=== PATIENT | female | born 2000 | race Caucasian/White ===

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

== ENCOUNTER 2021-07-09 15:46 | Outpatient (CLI) | payer OTHER ==
[2021-07-09] MEDS ORDERED: BETAMET ACET-BETAMETH SOD PHOS 6 MG/ML MDV IM SCH (16:00)
== END 2021-07-09 16:55 | disposition home or self-care (01) ==
LOC: FBPOP 15:46
PROVIDERS: ATTEND Obstetrics & Gynecology Obstetrics
DX: O36.8131 Decreased fetal movements, third trimester, fetus 1 (principal); Z3A.36 36 weeks gestation of pregnancy
CPT/HCPCS: 59025; 96372; 84112; J0702

== ENCOUNTER 2021-07-10 16:10 | Outpatient (CLI) | payer OTHER ==
[2021-07-10] MEDS ORDERED: BETAMET ACET-BETAMETH SOD PHOS 6 MG/ML MDV IM SCH (16:30)
[2021-07-10 17:20] VITALS: BP 139/86; PULSE 69; RESP 16; TEMP 97.8
== END 2021-07-10 17:00 | disposition home or self-care (01) ==
LOC: FBPOP 16:10
PROVIDERS: ATTEND Obstetrics & Gynecology Obstetrics
DX: O36.8131 Decreased fetal movements, third trimester, fetus 1 (principal); O36.5931 Maternal care for other known or suspected poor fetal growth, third trimester, fetus 1; Z3A.36 36 weeks gestation of pregnancy
CPT/HCPCS: 59025; J0702

== ENCOUNTER 2021-07-11 00:02 | Observation (INO) | payer OTHER ==
[2021-07-11] MEDS ORDERED: LACTATED RINGERS 1,000 ML IV SCH (00:45)
[2021-07-11 01:12] VITALS: BP 134/82; PULSE 109; RESP 16; TEMP 98.2
[2021-07-11 01:16] LABS: Basophils % (A) 0 %; Eosinophils % (A) 0 %; HCT 40.9 % (34.0-46.0); HGB 13.7 gm/dL (11.4-16.0); Lymphocytes # (A) 0.9 k/uL (1.0-4.8); Lymphocytes % (A) 8 %; MCH 32.8 pg (25.0-35.0); MCHC 33.6 g/dL (31.0-37.0); MCV 97.6 fL (80.0-100.0); Mean Platelet Volume 7.5; Monocytes # (A) 0.4 k/uL (0-1.0); Monocytes % (A) 4 %; Neutrophils # (A) 9.5 k/uL (1.3-7.7); Neutrophils % (A) 87 %; Platelet Count 252 k/uL (150-450); RBC 4.19 m/uL (3.80-5.40); RDW 13.6 % (11.5-15.5); WBC 10.9 k/uL (4.0-11.0)
--- NOTE | 2021-07-11 08:33 | US ---
EXAMINATION TYPE: US OB limited DATE OF EXAM: 07/11/2021 COMPARISON: NONE CLINICAL HISTORY: MD ordered OMAIRA . low omaira at office - 7cm, light bleeding EXAM PERFORMED: OBTA GESTATIONAL AGE / DATING Physician Established: (36 weeks/4 days) EDC: 08/04/2021 No growth performed on today?s study per ordering physician SURVEY OMAIRA: 9.5 cm Normal Ultrasound evidence of premature rupture of membranes? no HEART RATE: 115 bpm RHYTHM: Normal IMPRESSION: Limited ultrasound. Single viable intrauterine with normal OMAIRA.
--- NOTE | 2021-07-11 09:12 | P.DS ---
Providers Date of admission: 07/11/21 00:55 Expected date of discharge: 07/11/21 Attending physician: Roselyn Adler Primary care physician: Stated None - Discharge Diagnosis(es) (1) 36 to 37 weeks gestation of Current Visit: Yes Status: Acute (2) Vaginal bleeding Current Visit: Yes Status: Acute (3) SGA (small for gestational age), , affecting care of mother, antepartum Current Visit: Yes Status: Acute Hospital Course: 20yo at 36 4/7 weeks that presented last night with c/o vaginal bleeding, no further bleeding last night, brown discharge this am. she does notes good FM. NST cat 1 this am. Patient has been receiving routine care with myself, other than being complicated by small for gestational age she has done well. She has been receiving NSTs for presumed decreased movement all testing has been reassuring throughout the . She did complain of possible rupture of membranes on Wednesday when low fluid was appreciated on ultrasound. She presented to labor and delivery and negative in nature was appreciated. Plan - Discharge Summary New Discharge Prescriptions: No Action Pnv No.95/Ferrous Fum/Folic AC [ Multivitamin Tablet] 1 each PO DAILY Aspirin [Children's Aspirin] 81 mg PO DAILY Discharge Medication List Pnv No.95/Ferrous Fum/Folic AC [ Multivitamin Tablet] 1 each PO DAILY 12/06/18 [History] Aspirin [Children's Aspirin] 81 mg PO DAILY 07/09/21 [History] Follow up Appointment(s)/Referral(s): Roselyn Adler DO [Doctor of Osteopathic Medicine] - 3 Days (wednesday for NST ) Discharge Disposition: HOME SELF-CARE
--- NOTE | 2021-07-11 09:13 | P.HPOB ---
History of Present Illness H&P Date: 07/11/21 Chief Complaint: IUP at 36-4/7 weeks, vaginal bleeding This is a 20-year-old 3 para 1011 at 36-4/7 weeks, patient is dated by a last menstrual period equal to a first trimester ultrasound. Patient presented with complaints of an episode of vaginal bleeding last evening. Patient noted she got up to the bathroom and noted blood bright red in nature in the toilet. Patient presented to labor and delivery. testing has been reassuring overnight, NST category 1, no contractions were appreciated. Patient has had no further bleeding overnight. Cervix was unchanged from prior examination //high. OMAIRA was ordered for this morning. Amniotic fluid index in the office on wednesday was 7.7, increased to 9.8 this morning. 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, dermographia History of Any Multi-Drug Resistant Organisms: None Reported Past Surgical History: No Surgical Hx Reported Additional Past Surgical History / Comment(s): D&C Past Anesthesia/Blood Transfusion Reactions: No Reported Reaction Past Psychological History: Anxiety, Depression Smoking Status: Never smoker Past Alcohol Use History: None Reported Past Drug Use History: None Reported - Past Family History Mother Family Medical History: Cancer Additional Family Medical History / Comment(s): Cervical and Uterine CA Medications and Allergies Home Medications Medication Instructions Recorded Confirmed Type Pnv No.95/Ferrous Fum/Folic AC 1 each PO DAILY 12/06/18 07/11/21 History [ Multivitamin Tablet] Aspirin [Children's Aspirin] 81 mg PO DAILY 07/09/21 07/11/21 History Allergies Allergy/AdvReac Type Severity Reaction Status Date / Time No Known Allergies Allergy Verified 07/10/21 16:22 Exam Osteopathic Statement: *. No significant issues noted on an osteopathic structural exam other than those noted in the History and Physical/Consult. Vital Signs Temp Pulse Resp BP 07/11/21 00:17 98.2 F 109 H 16 134/82 Intake and Output 07/10/21 07/11/21 07/11/21 22:59 06:59 14:59 Other: # Voids 1 Weight 106.594 kg Targeted physical exam was performed on this date and hospice/home health aide a well- nourished well-developed female in no acute distress, breathing is noted to be nonlabored, heart has regular rhythm, abdomen is gravid and appropriate for gestational age, cervical exam is deferred as she has not been yael and no changes appreciated on RN exam last evening. NST is appreciated to be category 1, no contractions are appreciated. Amniotic fluid index performed this morning by ultrasound, 9.8 increased from prior 7.7. Results Result Diagrams: 07/11/21 01:00 Abnormal Lab Results - Last 24 Hours (Table) 07/11/21 Range/Units 01:00 Neutrophils # 9.5 H (1.3-7.7) k/uL Lymphocytes # 0.9 L (1.0-4.8) k/uL Assessment and Plan (1) 36 to 37 weeks gestation of Current Visit: Yes Status: Acute Code(s): IYB8910 - SNOMED Code(s): 292642895 (2) Vaginal bleeding Current Visit: Yes Status: Acute Code(s): N93.9 - ABNORMAL UTERINE AND VAGINAL BLEEDING, UNSPECIFIED SNOMED Code(s): 247299225 (3) SGA (small for gestational age), , affecting care of mother, antepartum Current Visit: Yes Status: Acute Code(s): O36.5990 - MATERN CARE FOR OTH OR SUSP POOR FETL GRTH, UNSP TRI, UNSP SNOMED Code(s): 451416615 Plan: 20yo at 36 4/7 weeks that presented last evening with c/o vaginal bleeding. She was seen in the office on Wednesday efw was noted to be 10%ile, OMAIRA 7.7, she did receive betamethasone on wednesday and . she was to have an OMAIRA today and the is was noted to increase to 9.8. She is counseled on PTL precautions. She is to FU on wednesday in the office for NST/OMAIRA.
== END 2021-07-11 10:10 | disposition home or self-care (01) ==
LOC: FBPOP 00:02 → 4FBP 00:47 → UNDOADMOB 00:47 → 4FBP 00:55
PROVIDERS: ADMIT Obstetrics & Gynecology; ATTEND Obstetrics & Gynecology Obstetrics
DX: O46.93 Antepartum hemorrhage, unspecified, third trimester (principal); O36.5930 Maternal care for other known or suspected poor fetal growth, third trimester, not applicable or unspecified; Z3A.37 37 weeks gestation of pregnancy; O99.344 Other mental disorders complicating childbirth; F41.9 Anxiety disorder, unspecified; F32.A Depression, unspecified; O99.713 Diseases of the skin and subcutaneous tissue complicating pregnancy, third trimester; L50.3 Dermatographic urticaria; Z79.82 Long term (current) use of aspirin; Z79.899 Other long term (current) drug therapy; Z71.89 Other specified counseling; Z80.49 Family history of malignant neoplasm of other genital organs; Z87.59 Personal history of other complications of pregnancy, childbirth and the puerperium
CPT/HCPCS: 59025; 96360; 96361; 85025; 76815; G0463; G0378; 99215

== ENCOUNTER 2021-07-14 09:11 | Inpatient (IN) | payer OTHER ==
[2021-07-14] MEDS ORDERED: CITRIC ACID-SODIUM CITRATE 15 ML CUP PO ONE (09:53)
[2021-07-14] MEDS ORDERED: LACTATED RINGERS 1,000 ML IV SCH (10:00)
[2021-07-14 10:17] LABS: Basophils % (A) 0 %; Eosinophils # (A) 0.1 k/uL (0-0.7); Eosinophils % (A) 1 %; HCT 39.5 % (34.0-46.0); HGB 13.3 gm/dL (11.4-16.0); Lymphocytes # (A) 2.1 k/uL (1.0-4.8); Lymphocytes % (A) 22 %; MCH 32.4 pg (25.0-35.0); MCHC 33.6 g/dL (31.0-37.0); MCV 96.5 fL (80.0-100.0); Mean Platelet Volume 7.9; Monocytes # (A) 0.6 k/uL (0-1.0); Monocytes % (A) 6 %; Neutrophils # (A) 6.6 k/uL (1.3-7.7); Neutrophils % (A) 70 %; Platelet Count 248 k/uL (150-450); RBC 4.09 m/uL (3.80-5.40); RDW 13.1 % (11.5-15.5); WBC 9.5 k/uL (4.0-11.0)
[2021-07-14] MEDS ORDERED: ONDANSETRON 4 MG/2 ML VIAL ONE (12:07)
[2021-07-14] MEDS ORDERED: OXYTOCIN 30 UNITS/500 ML NS BAG IV ONE (12:07)
[2021-07-14] MEDS ORDERED: MORPHINE SULFATE (PF) 0.3 MG/0.3 ML SYR ONE (12:07)
[2021-07-14] MEDS ORDERED: PHENYLEPHRINE-0.9% NACL SYG 1,000 MCG/10 ML SYRINGE ONE (12:07)
[2021-07-14] MEDS ORDERED: NALBUPHINE 10 MG/ML (1 ML AMP) ONE (12:07)
--- NOTE | 2021-07-14 12:56 | P.HPOB ---
History of Present Illness H&P Date: 07/14/21 Chief Complaint: IUP at 37 and 0, SGA, oligohydramnios This is a 20-year-old 3 para 1011 at 37-0/7 weeks with good dating per nurse by first trimester ultrasound presents for repeat section. Patient is been being followed for low amniotic fluid index. Last Wednesday noted to be 7.7, estimated weight 10th percentile. Patient did receive steroids last week in OB triage. She presented on evening with complaints of spontaneous rupture of membranes, negative amnisure, she was observed overnight, OMAIRA was noted to be 9 Wednesday morning. Patient states she did well over the weekend. Continued complaints of decreased movement. Patient had a reactive NST, category 1 and the office, amniotic fluid index was noted to be 5.3. Given findings of small for gestational age, oligohydramnios recommendation for repeat section was made. On bloodwork this patient has a blood type of O+, rubella status immune, B surface antigen negative, HIV negative, RPR is nonreactive. 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, dermographia History of Any Multi-Drug Resistant Organisms: None Reported Past Surgical History: No Surgical Hx Reported Additional Past Surgical History / Comment(s): D&C Past Anesthesia/Blood Transfusion Reactions: No Reported Reaction Past Psychological History: Anxiety, Depression Smoking Status: Never smoker Past Alcohol Use History: None Reported Past Drug Use History: None Reported - Past Family History Mother Family Medical History: Cancer Additional Family Medical History / Comment(s): Cervical and Uterine CA Medications and Allergies Home Medications Medication Instructions Recorded Confirmed Type Pnv No.95/Ferrous Fum/Folic AC 1 each PO DAILY 12/06/18 07/14/21 History [ Multivitamin Tablet] Aspirin [Children's Aspirin] 81 mg PO DAILY 07/09/21 07/14/21 History Allergies Allergy/AdvReac Type Severity Reaction Status Date / Time No Known Allergies Allergy Verified 07/14/21 09:41 Exam Osteopathic Statement: *. No significant issues noted on an osteopathic structural exam other than those noted in the History and Physical/Consult. 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 heart tones returned be category 1 on nonstress test. No contractions are appreciated. Results Result Diagrams: 07/14/21 09:30 Assessment and Plan (1) 37 weeks gestation of Current Visit: Yes Status: Acute Code(s): Z3A.37 - 37 WEEKS GESTATION OF SNOMED Code(s): 82349911 (2) Oligohydramnios Current Visit: Yes Status: Acute Code(s): O41.00X0 - OLIGOHYDRAMNIOS, UNSP TRIMESTER, NOT APPLICABLE OR UNSP SNOMED Code(s): 73064000 (3) SGA (small for gestational age), , affecting care of mother, antepartum Current Visit: Yes Status: Acute Code(s): O36.5990 - MATERN CARE FOR OTH OR SUSP POOR FETL GRTH, UNSP TRI, UNSP SNOMED Code(s): 938721303 (4) Decreased movement Current Visit: Yes Status: Acute Code(s): O36.8190 - DECREASED MOVEMENTS, UNSP TRIMESTER, UNSP SNOMED Code(s): 924083249 Plan: 20-year-old 3 para 1011 at 37 and 0/sevenths weeks, history of 1. Patient has been being followed for small for gestational age, 10th percentile, oligohydramnios diagnosed this morning with an OMAIRA of 5.3. Patient counseled on need for repeat given oligohydramnios. Discussion regarding intolerance of labor, and trial of labor after . Patient agrees and repeat is scheduled.
[2021-07-14] MEDS ORDERED: ZOLPIDEM 5 MG TAB PO PRN (12:59)
[2021-07-14] MEDS ORDERED: diphenhydrAMINE 50 MG/ML 1 ML VIAL IVP PRN ×2 (12:59)
[2021-07-14] MEDS ORDERED: NALOXONE 0.4 MG/ML 1 ML VIAL IV PRN (12:59)
[2021-07-14] MEDS ORDERED: METOCLOPRAMIDE 5 MG/ML 2 ML VIAL IVP PRN (12:59)
[2021-07-14] MEDS ORDERED: diphenhydrAMINE 50 MG CAP PO PRN (12:59)
[2021-07-14] MEDS ORDERED: ONDANSETRON 4 MG/2 ML VIAL IVP PRN (12:59)
--- NOTE | 2021-07-14 12:59 | P.OP ---
Date of Procedure: 07/14/21 Preoperative Diagnosis: IUP at 37-0/7 weeks, small for gestational age, oligohydramnios Postoperative Diagnosis: Same Procedure(s) Performed: Repeat section Anesthesia: spinal Surgeon: Roselyn Adler Tool Inspector #1: Toyin Ricks Estimated Blood Loss (ml): 400 IV fluids (ml): 500 Urine output (ml): 200 Pathology: other (Placenta) Condition: stable Disposition: observation Indications for Procedure: Known small for gestational age, 10th percentile, oligohydramnios Operative Findings: Normal tubes and ovaries were appreciated, viable male delivered at 1227, weight of 5 lbs. 15 oz., Apgars of 9 and 9 at one and 5 minutes respectively. Description of Procedure: The patient was prepped and draped in the usual fashion after spinal anesthesia was administered by anesthesia. A Pfannenstiel incision was made and extended of the abdominal cavity without difficulty. The bladder peritoneum was elevated and incised and reflected distally. A 2 cm incision was made in the transverse plane of the lower uterine segment to enter the uterus at which time a small amount of clear fluid was noted. The lower uterine segment was noted to be thin in nature. The incision was extended in both directions bluntly. The head was encountered within the field and delivered up and through the incision where the nose and mouth were thoroughly suctioned. Remainder of the was delivered onto the surgical field where the cord was doubly clamped, cut, and the was passed for resuscitative measures with weight and Apgars as noted above. A segment of cord was then doubly clamped, cut, and set aside should cord gases become necessary. The placenta was delivered manually, intact, and was grossly normal with a grossly normal three-vessel cord. The uterus was exteriorized and the interior cavity of the uterus swept of any remaining placental and membranous fragments with a laparotomy sponge. The margins of the incision were grasped with allis clamps and the incision closed in 2 layers. First layer was a running locking layer of 0 Vicryl from margin to margin followed by a second layer of imbricating 0 Vicryl from margin to margin. Any small points of bleeding were then made hemostatic with the Bovie. Once hemostasis was achieved, the posterior cul-de-sac was suctioned with a guard and the uterine and ovarian findings are as noted above. The uterus was replaced within the abdominal cavity and the gutters swept of any remaining blood fluid or clot. The incision was again reexamined and hemostasis was noted to be excellent. Any small point of bleeding were made hemostatic with the Bovie. Once hemostasis was achieved the parietal peritoneum was loosely reapproximated. The layer of muscles were examined and made hemostatic with the Bovie. Attention was then turned to the fascia which was closed with 2 running stitches of 0 Vicryl proceeding from the lateral margins to the midpoint. The subcutaneous tissues were irrigated, made hemostatic with the Bovie, and reapproximated with a running stitch of 30 plain catgut. The skin was reapproximated with 4-0 Vicryl. Estimated blood loss for the case was approximately 500 mL. All sponge instrument and needle counts are correct. There were no complications. The patient tolerated the procedure well and proceeded to the recovery room in stable condition. Both mother and are resting comfortably in recovery.
[2021-07-14] MEDS ORDERED: OXYTOCIN 30 UNITS/500 ML NS 30 UNIT in SALINE 1 500ML.BAG IV SCH (13:00)
[2021-07-14] MEDS: ACETAMINOPHEN IV (For NPO) 1,000 MG in EMPTY BAG 1 BAG IVPB SCH (13:22)
[2021-07-14] MEDS ORDERED: IBUPROFEN IV 800 MG in SODIUM CHLORIDE 0.9% 250 ML IV PRN (19:00)
[2021-07-14] MEDS: LACTATED RINGERS 1,000 ML IV SCH (20:23)
[2021-07-14] MEDS: IBUPROFEN 600 MG TAB PO SCH (21:19)
[2021-07-14] MEDS: SENNOSIDES-DOCUSATE SODIUM 1 EACH TAB PO SCH (22:22)
[2021-07-14] MEDS: ACETAMINOPHEN TAB 500 MG TAB PO SCH (22:22)
[2021-07-15] MEDS: diphenhydrAMINE 25 MG CAP PO PRN ×2 (01:19→08:00)
[2021-07-15] MEDS: ACETAMINOPHEN TAB 500 MG TAB PO SCH ×4 (01:19→22:46)
[2021-07-15] MEDS: LACTATED RINGERS 1,000 ML IV SCH ×2 (02:18→18:03)
[2021-07-15] MEDS: ACETAMINOPHEN IV (For NPO) 1,000 MG in EMPTY BAG 1 BAG IVPB SCH (02:18)
[2021-07-15] MEDS: IBUPROFEN 600 MG TAB PO SCH ×4 (02:21→17:59)
[2021-07-15] MEDS: SIMETHICONE 80 MG CHEWABLE PO PRN ×2 (04:34→12:53)
--- NOTE | 2021-07-15 06:36 | P.PN ---
Progress Note - Text Progress Note Date: 07/15/21 Patient seen and examined POD 1 s/p repeat with spinal duramorph. Patients pain well controlled with duramorph and adjunct oral medication. She is reporting mild itchiness. Patient has regained full motor and sensory function. Patient is able to ambulate without difficult and has used the restroom. Patient denies GERARDO, F/C, N/V.
[2021-07-15 07:23] LABS: Basophils % (A) 0 %; Eosinophils # (A) 0.1 k/uL (0-0.7); Eosinophils % (A) 1 %; HCT 39.3 % (34.0-46.0); HGB 13.1 gm/dL (11.4-16.0); Lymphocytes # (A) 1.9 k/uL (1.0-4.8); Lymphocytes % (A) 16 %; MCH 32.5 pg (25.0-35.0); MCHC 33.4 g/dL (31.0-37.0); MCV 97.2 fL (80.0-100.0); Mean Platelet Volume 7.5; Monocytes # (A) 0.7 k/uL (0-1.0); Monocytes % (A) 6 %; Neutrophils # (A) 9.3 k/uL (1.3-7.7); Neutrophils % (A) 77 %; Platelet Count 245 k/uL (150-450); RBC 4.05 m/uL (3.80-5.40)
[2021-07-15] MEDS: SENNOSIDES-DOCUSATE SODIUM 1 EACH TAB PO SCH ×2 (08:01→21:27)
--- NOTE | 2021-07-15 09:24 | P.PNOBGPC ---
Subjective - Subjective Principal diagnosis: Postop day 1, repeat Interval history: Patient is doing well. Ambulating and voiding without difficulty. She is tolerating regular diet without nausea or vomiting. Lochia is minimal. Patient reports: Reports appetite normal, Reports voiding normally, Reports pain well controlled, Reports ambulating normally : doing well, nursing well Objective - Vital Signs Latest vital signs: Vital Signs Temp Pulse Resp BP Pulse Ox 07/15/21 07:47 98.2 F 78 16 103/71 07/15/21 04:00 98.5 F 61 16 108/65 96 07/15/21 00:00 98.4 F 64 16 110/69 96 07/14/21 20:00 98.0 F 70 16 103/65 96 07/14/21 15:00 97.6 F 63 16 101/61 96 07/14/21 14:30 66 14 108/61 97 07/14/21 14:00 61 14 115/61 07/14/21 13:45 49 L 14 122/63 96 07/14/21 13:30 60 14 114/61 97 07/14/21 13:15 73 14 113/55 97 07/14/21 13:00 98.2 F 69 14 124/56 97 07/14/21 09:40 97.5 F L 90 16 143/75 98 Intake and Output 07/14/21 07/15/21 07/15/21 22:59 06:59 14:59 Output Total 1523 600 Balance -1523 -600 Output: Urine 900 600 Uretheral (Triana) 350 Output, Quantitative 623 Blood Loss Other: # Voids 1 1 - Exam Extremities: Present: normal, edema Abdomen: Present: normal appearance, soft Incision: Present: normal, dry, intact Uterus: Present: normal, firm - Labs Labs: Abnormal Lab Results - Last 24 Hours (Table) 07/15/21 Range/Units 07:03 WBC 12.0 H (4.0-11.0) k/uL Neutrophils # 9.3 H (1.3-7.7) k/uL Assessment and Plan (1) 37 weeks gestation of Current Visit: Yes Status: Acute Code(s): Z3A.37 - 37 WEEKS GESTATION OF SNOMED Code(s): 03614725 (2) Oligohydramnios Current Visit: Yes Status: Acute Code(s): O41.00X0 - OLIGOHYDRAMNIOS, UNSP TRIMESTER, NOT APPLICABLE OR UNSP SNOMED Code(s): 45817089 (3) SGA (small for gestational age), , affecting care of mother, antepartum Current Visit: Yes Status: Acute Code(s): O36.5990 - MATERN CARE FOR OTH OR SUSP POOR FETL GRTH, UNSP TRI, UNSP SNOMED Code(s): 510076069 (4) Decreased movement Current Visit: Yes Status: Acute Code(s): O36.8190 - DECREASED MOVEMENTS, UNSP TRIMESTER, UNSP SNOMED Code(s): 358525531 (5) S/P section Current Visit: Yes Status: Acute Code(s): Z98.891 - HISTORY OF UTERINE SCAR FROM PREVIOUS SURGERY SNOMED Code(s): 308849148 Plan: 20-year-old status post repeat for small for gestational age and oligohydramnios. Patient is doing well. Plan to continue routine postoperative care. Anticipate discharge home tomorrow
[2021-07-16] MEDS: IBUPROFEN 600 MG TAB PO SCH ×3 (02:16→14:35)
[2021-07-16] MEDS: ACETAMINOPHEN TAB 500 MG TAB PO SCH ×2 (02:22→12:04)
[2021-07-16] MEDS: SIMETHICONE 80 MG CHEWABLE PO PRN (02:22)
[2021-07-16] MEDS: SENNOSIDES-DOCUSATE SODIUM 1 EACH TAB PO SCH (08:09)
--- NOTE | 2021-07-16 09:03 | P.DS ---
Providers Date of admission: 07/14/21 09:11 Expected date of discharge: 07/16/21 Attending physician: Roselyn Adler Primary care physician: Stated None - Discharge Diagnosis(es) (1) 37 weeks gestation of Current Visit: Yes Status: Acute (2) Oligohydramnios Current Visit: Yes Status: Acute (3) SGA (small for gestational age), , affecting care of mother, antepartum Current Visit: Yes Status: Acute (4) Decreased movement Current Visit: Yes Status: Acute (5) S/P section Current Visit: Yes Status: Acute Hospital Course: This is a 20-year-old G3 now P2 012 that presented to labor and delivery at 37- 0/7 weeks for repeat . For full details on this patient please see the dictated history and physical. Patient had known findings of small for gestational age, estimated weight 10 percentile, amniotic fluid index 5.3 consistent with oligohydramnios. Patient was counseled on need for delivery at 37 weeks secondary to oligohydramnios. Patient underwent repeat section without difficulty. For full details on the please see the operative report. Patient delivered a viable male infant at 1227, weight of 5 lbs. 15 oz. Patient has done well post operatively. On this postoperative day #2 she is a billing and voiding without difficulty. She is tolerating regular diet without nausea or vomiting. She states her pain is well-controlled. She is breast-feeding with some difficulty. She does desire discharge home today. Patient Condition at Discharge: Good Plan - Discharge Summary New Discharge Prescriptions: No Action Pnv No.95/Ferrous Fum/Folic AC [ Multivitamin Tablet] 1 each PO DAILY Aspirin [Children's Aspirin] 81 mg PO DAILY Discharge Medication List Pnv No.95/Ferrous Fum/Folic AC [ Multivitamin Tablet] 1 each PO DAILY 12/06/18 [History] Aspirin [Children's Aspirin] 81 mg PO DAILY 07/09/21 [History] Follow up Appointment(s)/Referral(s): Roselyn Adler DO [Doctor of Osteopathic Medicine] - 2 Weeks Patient Instructions/Handouts: (DC), (GEN) Discharge Disposition: HOME SELF-CARE
[2021-07-16 09:18] VITALS: BP 119/73; PULSE 68; RESP 18; TEMP 97.7
== END 2021-07-16 12:15 | disposition home or self-care (01) | DRG 787 ==
LOC: 4FBP 09:11
PROVIDERS: ADMIT Obstetrics & Gynecology Obstetrics; ATTEND Obstetrics & Gynecology Obstetrics
PROC: 4A0HXCZ Measurement of Products of Conception, Cardiac Rate, External Approach (ICD-10-PCS; 2021-07-14)
PROC: 10D00Z1 Extraction of Products of Conception, Low, Open Approach (ICD-10-PCS; principal; 2021-07-14 12:00)
DX: O34.211 Maternal care for low transverse scar from previous cesarean delivery (principal); O41.03X0 Oligohydramnios, third trimester, not applicable or unspecified; F32.A Depression, unspecified; F41.9 Anxiety disorder, unspecified; O36.5930 Maternal care for other known or suspected poor fetal growth, third trimester, not applicable or unspecified; O36.8130 Decreased fetal movements, third trimester, not applicable or unspecified; O99.344 Other mental disorders complicating childbirth; O99.73 Diseases of the skin and subcutaneous tissue complicating the puerperium; L29.9 Pruritus, unspecified; Z37.0 Single live birth; Z3A.37 37 weeks gestation of pregnancy; Z79.82 Long term (current) use of aspirin; Z80.49 Family history of malignant neoplasm of other genital organs
CPT/HCPCS: 85025; 86850; 86900; 86901; 88307

== ENCOUNTER 2023-09-04 19:24 | Outpatient (CLI) | payer OTHER ==
--- NOTE | 2023-09-04 20:40 | US ---
EXAMINATION TYPE: US OB BPP wo non-stress DATE OF EXAM: 09/04/2023 COMPARISON: NONE CLINICAL INDICATION: Female, 22 years old with history of Decreased movement; TECHNIQUE: Transabdominal (TA). Scoring by the routing clerk during real-time assessment. FINDINGS: BPP PARAMETERS: PRESENTATION: Vertex LIE: Longitudinal?? HEART RATE: 155 bpm RHYTHM: Normal OMAIRA: 4.5 DIAPHRAGM IMAGED: yes BPP SCORIN. Breathin (1 episode of breathing of 30 second duration in 30 minutes of scanning time) 2. Movement: 2 (at least 3 discrete body movements in 30 minutes) 3. Tone: 2 (1 episode of active flexion/extension of limb) 4. OMAIRA: 0 (OMAIRA index > 5cm) ENROLLMENT PROCESSOR NOTES: fluid slightly low IMPRESSION: TOTAL SCORE: 6 / 8
[2023-09-04 20:50] VITALS: BP 129/75; PULSE 91; RESP 18
--- NOTE | 2023-09-05 20:15 | P.MSEPDOC ---
Presenting Problems - Arrival Data Date of Arrival on Unit: 09/04/23 Time of Arrival on Unit: 19:24 Mode of Transport: Ambulatory - Complaint OB-Reason for Admission/Chief Complaint: Decreased Movement Comment: Pt of Dr. suman Carmona 30 weeks and 2 days. Presents with c/o decreased movement since last night, but has noticed decreased movement for the past week. Medical History - Information : 4 Para: 2 Term: 2 : 0 Abortions: Spontaneous or Elective: 1 Number of Living Children: 2 - Gestational Age Gestational Age by SUMAYA (wks/days): 30 Weeks and 2 Days - History Complications: Other Comment: IUGR Review of Systems - Review of Systems Constitutional: No problems Breast: No problems ENT: No problems Cardiovascular: No problems Respiratory: No problems Gastrointestinal: No problems Genitourinary: No problems Musculoskeletal: No problems Neurological: No problems Skin: No problems Vital Signs - Pulse Pulse Oximetery Pulse Rate: 91 Pulse Assessment Method: Pulse Oximetry - Respirations Respiratory Rate: 18 Oxygen Delivery Method: Room Air O2 Sat by Pulse Oximetry: 99 - Blood Pressure Right Arm Blood Pressure: 129/75 Blood Pressure Mean: 93 Blood Pressure Source: Automatic Cuff Medical Screen Scoring - Assessment - Baby A Baseline FHR: 145 NST: Reactive Physician Notification - Physician Notified Physician Notified Date: 09/04/23 Physician Notified Time: 20:27 Physician: Ese Asher New Order Received: Yes - Notification Comment Comment: Spoke with Dr. Asher, Pt of Dr. suman Carmona 30 weeks and 2 days. Presents with c/o decreased movement since last night, but has noticed decreased movement for the past week. Vitals stable, NST reactive, did trace a few variables. Moderate variability. No cx on monitor or per pt. Discussed BPP resultls and OMAIRA of 4.5. Dr. Asher requesting pt return to triage tomorrow for a repeat NST and BPP, Pt can be D/C home Maternal Triage Index - Maternal Triage Index Presenting for scheduled procedure w/no complaint: No - Stat/Priority 1 Stat Priority 1: No - Urgent/Priority 2 Urgent Priority 2: Yes Provider Notified: Ese Asher Provider Notified Time: 20:27 Criteria Met for Priority 2: Spoke with Dr. Asher, Pt of Dr. will 30 weeks and 2 days. Presents with c/o decreased movement since last night, but has noticed decreased movement for the past week. Vitals stable, NST reactive, did trace a few variables. Moderate variability. No cx on monitor or per pt. Discussed BPP resultls and OMAIRA of 4.5. Dr. Asher requesting pt return to triage tomorrow for a repeat NST and BPP Disposition - Disposition OB Disposition: Discharge to home Discharge Date: 09/04/23 Discharge Time: 20:35 I agree with the RN Medical Screening Exam: Yes Physician's MSE Comment: I have neither seen nor examined the patient Case reviewed; plan agreed upon as documented in EMR&OBIX.: Yes Diagnosis: MATERNAL CARE FOR PROBLEM, UNSP, THIRD * DO NOT USE *
== END 2023-09-04 20:35 | disposition home or self-care (01) ==
LOC: FBPOP 19:24
PROVIDERS: ATTEND Obstetrics & Gynecology
DX: O36.8131 Decreased fetal movements, third trimester, fetus 1 (principal); Z3A.30 30 weeks gestation of pregnancy
CPT/HCPCS: 59025; 76819; G0463; 99213

== ENCOUNTER → 2023-09-05 | Outpatient (CLI) | payer OTHER ==
--- NOTE | 2023-09-05 09:44 | US ---
EXAMINATION TYPE: US OB BPP wo non-stress DATE OF EXAM: 09/05/2023 COMPARISON: US day before CLINICAL INDICATION: Female, 22 years old with history of decreased movement, low OMAIRA yesterday .; TECHNIQUE: Transabdominal (TA). Scoring by the training and development professional during real-time assessment. FINDINGS: BPP PARAMETERS: PRESENTATION: Vertex LIE: Longitudinal?? HEART RATE: 146 bpm RHYTHM: Normal OMAIRA: 6.0cm DIAPHRAGM IMAGED: yes BPP SCORIN. Breathin (1 episode of breathing of 30 second duration in 30 minutes of scanning time) 2. Movement: 2 (at least 3 discrete body movements in 30 minutes) 3. Tone: 2 (1 episode of active flexion/extension of limb) 4. OMAIRA: 2 (OMAIRA index > 5cm) IMPRESSION: TOTAL SCORE: 8 / 8
[2023-09-05 10:26] VITALS: BP 137/86; PULSE 104; RESP 18; TEMP 98.1
--- NOTE | 2023-09-05 20:16 | P.MSEPDOC ---
Presenting Problems - Arrival Data Date of Arrival on Unit: 09/05/23 Time of Arrival on Unit: 08:33 Mode of Transport: Ambulatory - Complaint OB-Reason for Admission/Chief Complaint: Other Comment: Returning for repeat BPP and NST. Pt was here last night for decreased movement and OMAIRA was 4.5, making BPP 6/8. Medical History - Information : 4 Para: 2 Term: 2 : 0 Abortions: Spontaneous or Elective: 0 Number of Living Children: 2 - Gestational Age Gestational Age by SUMAYA (wks/days): 30 Weeks and 3 Days - History Complications: Other Comment: IUGR Review of Systems - Review of Systems Constitutional: No problems Breast: No problems ENT: No problems Cardiovascular: No problems Respiratory: No problems Gastrointestinal: No problems Genitourinary: No problems Musculoskeletal: No problems Neurological: No problems Skin: No problems Vital Signs - Temperature Temperature: 98.1 F Temperature Source: Oral - Pulse Right Pulse Oximetery Pulse Rate: 104 Pulse Assessment Method: Pulse Oximetry - Respirations Respiratory Rate: 18 Oxygen Delivery Method: Room Air O2 Sat by Pulse Oximetry: 99 - Blood Pressure Right Arm Blood Pressure: 137/86 Blood Pressure Mean: 103 Blood Pressure Source: Automatic Cuff Medical Screen Scoring - Uterine Contractions Frequency From (mins): 0 Frequency To (mins): 0 - Assessment - Baby A Baseline FHR: 140 Heart Rate - NICHD Category: Category I (Normal) NST: Reactive Physician Notification - Physician Notified Physician Notified Date: 09/05/23 Physician Notified Time: 08:54 Physician: Ese Asher Order Received: Yes Maternal Triage Index - Maternal Triage Index Presenting for scheduled procedure w/no complaint: Yes - Scheduled/Requesting Priority 5 Scheduled/Requesting Priority 5: Yes Criteria Met for Priority 5: Pt returning for repeat BPP and NST as instructed by Physician when discharged from triage last night. Disposition - Disposition OB Disposition: Discharge to home Discharge Date: 09/05/23 Discharge Time: 09:40 I agree with the RN Medical Screening Exam: Yes Physician's MSE Comment: I have neither seen nor examined the patient Case reviewed; plan agreed upon as documented in EMR&OBIX.: Yes Diagnosis: MATERNAL CARE FOR PROBLEM, UNSP, THIRD * DO NOT USE *
== END ==
LOC: FBPOP 08:33
PROVIDERS: ATTEND Obstetrics & Gynecology
DX: O36.8131 Decreased fetal movements, third trimester, fetus 1 (principal); Z3A.30 30 weeks gestation of pregnancy
CPT/HCPCS: 59025; 76819; G0463; 99213

== ENCOUNTER 2023-09-22 12:34 | Outpatient (CLI) | payer OTHER ==
[2023-09-22] MEDS: BETAMET ACET-BETAMETH SOD PHOS 6 MG/ML MDV IM SCH (13:01)
[2023-09-22 13:35] VITALS: BP 132/75; PULSE 82; RESP 18; TEMP 97.4
== END 2023-09-22 13:16 | disposition home or self-care (01) ==
LOC: FBPOP 12:34
PROVIDERS: ATTEND Obstetrics & Gynecology Obstetrics
DX: O26.893 Other specified pregnancy related conditions, third trimester (principal); Z29.89 Encounter for other specified prophylactic measures; Z3A.32 32 weeks gestation of pregnancy
CPT/HCPCS: 59025; J0702

== ENCOUNTER 2023-10-14 06:00 | Inpatient (IN) | payer OTHER ==
[2023-10-14] MEDS ORDERED: METHYLERGONOVINE 0.2 MG/ML 1 ML AMP IM PRN (15:10)
[2023-10-14] MEDS ORDERED: miSOPROStoL 200 MCG TAB PO PRN (15:10)
[2023-10-14] MEDS ORDERED: CARBOPROST TROMETHAMINE 250 MCG/ML 1 ML AMP IM PRN (15:10)
[2023-10-14] MEDS ORDERED: TRANEXAMIC 1,000 MG/100ML-NACL 1,000 MG in EMPTY BAG 1 BAG IV PRN (15:10)
[2023-10-14] MEDS ORDERED: OXYTOCIN 10 UNIT/ML 1 ML VIAL IM PRN (15:10)
[2023-10-14] MEDS: CITRIC ACID-SODIUM CITRATE 15 ML CUP PO ONE (15:36)
[2023-10-14] MEDS: LACTATED RINGERS 1,000 ML IV ONE (15:36)
[2023-10-14] MEDS: LACTATED RINGERS 1,000 ML IV SCH (15:46)
[2023-10-14 16:05] LABS: Basophils % (A) 0 %; Eosinophils # (A) 0.1 k/uL (0-0.7); Eosinophils % (A) 1 %; HCT 39.5 % (34.0-46.0); HGB 13.2 gm/dL (11.4-16.0); Lymphocytes # (A) 1.6 k/uL (1.0-4.8); Lymphocytes % (A) 19 %; MCH 32.7 pg (25.0-35.0); MCHC 33.5 g/dL (31.0-37.0); MCV 97.6 fL (80.0-100.0); Mean Platelet Volume 8.4; Monocytes # (A) 0.4 k/uL (0-1.0); Monocytes % (A) 5 %; Neutrophils # (A) 5.9 k/uL (1.3-7.7); Neutrophils % (A) 73 %; Platelet Count 194 k/uL (150-450); RBC 4.05 m/uL (3.80-5.40); RDW 12.9 % (11.5-15.5); WBC 8.1 k/uL (3.8-10.6)
[2023-10-14] MEDS ORDERED: NALBUPHINE 10 MG/ML (10 ML MDV) ONE (17:05)
[2023-10-14] MEDS ORDERED: ePHEDrine 50 MG/ML 1 ML VIAL ONE (17:05)
[2023-10-14] MEDS ORDERED: OXYTOCIN 30 UNITS/500 ML NS BAG IV ONE (17:05)
[2023-10-14] MEDS ORDERED: MORPHINE SULFATE (PF) 0.3 MG/0.3 ML SYR ONE (17:05)
[2023-10-14] MEDS ORDERED: ONDANSETRON 4 MG/2 ML VIAL ONE (17:05)
--- NOTE | 2023-10-14 18:00 | P.HPOB ---
History of Present Illness H&P Date: 10/14/23 Chief Complaint: IUP @ 36 0/7 weeks, IUGR, oligohydramnios 23-year-old 4 para 2-0-1-2 at 36-0/7 weeks that presents to labor delivery for repeat section secondary to intrauterine growth restriction and oligohydramnios. Patient had an ultrasound for growth yesterday revealing an estimated weight of the 3rd percentile with OMAIRA of 6. BPP was noted to be 8 and 8. Patient has a history of a prior x2, and does request repeat. Patient has been receiving routine care that has been complicated by IUGR. Patient does note movement, and occasional contraction is noted. On blood work this patient is a blood type of O+, rubella status immune, hepatitis B surface engine negative, HIV negative, RPR is nonreactive. GBS is currently pending. Review of Systems Constitutional: Denies chills, Denies fatigue, Denies fever Ears, nose, mouth and throat: Denies headache Cardiovascular: Reports leg edema Respiratory: Denies dyspnea Gastrointestinal: Denies constipation, Denies diarrhea, Denies nausea, Denies vomiting Genitourinary: Reports Past Medical History Past Medical History: No Reported History, Skin Disorder Additional Past Medical History / Comment(s): miscarriage, dermographia History of Any Multi-Drug Resistant Organisms: None Reported Past Surgical History: No Surgical Hx Reported Additional Past Surgical History / Comment(s): D&C Past Anesthesia/Blood Transfusion Reactions: No Reported Reaction Past Psychological History: Anxiety, Depression Smoking Status: Never smoker Past Alcohol Use History: None Reported Past Drug Use History: None Reported - Past Family History Mother Family Medical History: Cancer Additional Family Medical History / Comment(s): Cervical and Uterine CA Medications and Allergies Home Medications Medication Instructions Recorded Confirmed Type Pnv No.95/Ferrous Fum/Folic AC 1 each PO DAILY 12/06/18 10/14/23 History [ Multivitamin Tablet] Aspirin [Children's Aspirin] 81 mg PO DAILY 07/09/21 10/14/23 History Allergies Allergy/AdvReac Type Severity Reaction Status Date / Time No Known Allergies Allergy Verified 10/14/23 15:10 Exam Osteopathic Statement: *. No significant issues noted on an osteopathic structural exam other than those noted in the History and Physical/Consult. Vital Signs Temp Pulse Resp BP Pulse Ox 10/14/23 15:16 98.3 F 102 H 18 130/83 98 Intake and Output 10/14/23 10/14/23 10/14/23 06:59 14:59 22:59 Other: Weight 94.801 kg Targeted physical exam is performed this date General is well-nourished well- developed female in no acute distress, breathing is nonlabored, heart has a regular rate and rhythm, abdomen is gravid. heart tones noted to be category 1 and she is not yael. Cervical exam is deferred. Results Result Diagrams: 10/14/23 15:34 Assessment and Plan (1) IUGR (intrauterine growth restriction) Current Visit: Yes Status: Acute Code(s): IZC2759 - SNOMED Code(s): 37834655 (2) 37 weeks gestation of Current Visit: No Status: Acute Code(s): Z3A.37 - 37 WEEKS GESTATION OF P REGNANCY SNOMED Code(s): 35149771 (3) Decreased movement Current Visit: No Status: Acute Code(s): O36.8190 - DECREASED MOVEMENTS, UNSP TRIMESTER, UNSP SNOMED Code(s): 585668500 (4) Oligohydramnios Current Visit: No Status: Acute Code(s): O41.00X0 - OLIGOHYDRAMNIOS, UNSP TRIMESTER, NOT APPLICABLE OR UNSP SNOMED Code(s): 86260988 Plan: 23-year-old 4 para 2-0-1-2 at 36-0/7 weeks presents for Cristobal section secondary to intrauterine growth restriction and oligohydramnios. Patient is counseled on repeat section and questions are answered. Patient is seen by anesthesia and taken back to the operating suite for repeat section.
[2023-10-14] MEDS ORDERED: ZOLPIDEM 5 MG TAB PO PRN (18:05)
[2023-10-14] MEDS ORDERED: diphenhydrAMINE 50 MG CAP PO PRN (18:05)
[2023-10-14] MEDS ORDERED: diphenhydrAMINE 50 MG/ML 1 ML VIAL IVP PRN ×2 (18:05)
[2023-10-14] MEDS ORDERED: METOCLOPRAMIDE 5 MG/ML 2 ML VIAL IVP PRN (18:05)
[2023-10-14] MEDS ORDERED: NALOXONE 0.4 MG/ML 1 ML VIAL IV PRN (18:05)
--- NOTE | 2023-10-14 18:05 | P.OP ---
Date of Procedure: 10/14/23 Preoperative Diagnosis: IUP at 36-0/7 weeks, intrauterine growth restriction, oligohydramnios, history of x 2 Postoperative Diagnosis: Same Procedure(s) Performed: Repeat section Anesthesia: spinal Surgeon: Roselyn Adler Student Counselor #1: Nikolay Aquino Estimated Blood Loss (ml): 655 IV fluids (ml): 1,200 Urine output (ml): 200 (Clear yellow) Pathology: other (Placenta) Condition: stable Disposition: observation Indications for Procedure: Intrauterine growth restriction, estimated weight of 3rd percentile, OMAIRA of 6, materials assistant with oligohydramnios Operative Findings: Viable male delivered at 1725, weight of 5 pounds 4 ounces, Apgars of 8 and 9 at 1 and 5 minutes respectively. Very thin lower uterine segment with amniotic fluid visible through the anterior uterine wall Description of Procedure: The patient was prepped and draped in the usual fashion after spinal anesthesia was administered by anesthesia department. A Pfannenstiel incision was made and extended of the abdominal cavity without difficulty. The bladder peritoneum was elevated and incised and reflected distally. A 2 cm incision was made in the t ransverse plane of the lower uterine segment to enter the uterus at which time clear fluid was noted. Thin lower uterine segment was noted with a defect appreciated, amniotic sac visualized on the anterior uterine wall. The incision was extended bluntly. The head was encountered within the field and delivered up and through the incision where the nose and mouth were thoroughly suctioned. Remainder of the infant was delivered onto the surgical field where the cord was doubly clamped, cut, and the was passed for resuscitative measures with weight and Apgars as noted above. The placenta was delivered manually, intact, and was grossly normal with a grossly normal three-vessel cord. The uterus was exteriorized and the interior cavity of the uterus swept of any remaining placental and membranous fragments with a laparotomy sponge. The margins of the incision were grasped with Vasquez clamps and the incision closed in 2 layers. First layer was a running locking layer of 0 Vicryl from margin to margin followed by a second layer of imbricating 0 Vicryl from margin to margin. Any small points of bleeding were then made hemostatic with the Bovie. Once hemostasis was achieved, the posterior cul-de-sac was suctioned with a guard and the uterine and ovarian findings are as noted above. The uterus was replaced within the abdominal cavity and the gutters swept of any remaining blood fluid or clot. The incision was again reexamined and hemostasis was noted to be excellent. Any small point of bleeding were made hemostatic with the Bovie. Once hemostasis was achieved the parietal peritoneum was loosely reapproximated. The layer of muscles were examined and made hemostatic with the Bovie. Attention was then turned to the fascia which was closed with 0 Vicryl in a running fashion from 1 lateral edge to the other. The subcutaneous tissues were irrigated, made hemostatic with the Bovie, and reapproximated with a running stitch of 30 3-0 Vicryl. The skin was reapproximated with 4-0 Vicryl. Estimated blood loss for the case was approximately 655 mL. All sponge instrument and needle counts are correct. There were no complications. The patient tolerated the procedure well and proceeded to the recovery room in stable condition. Both mother and are resting comfortably in recovery.
[2023-10-14] MEDS ORDERED: OXYTOCIN 30 UNITS/500 ML NS 30 UNIT in SALINE 1 500ML.BAG IV SCH (18:15)
[2023-10-14] MEDS: IBUPROFEN IV 800 MG in SODIUM CHLORIDE 0.9% 250 ML IV SCH (19:15)
[2023-10-14] MEDS: ONDANSETRON 4 MG/2 ML VIAL IVP PRN (20:12)
[2023-10-14] MEDS: SENNOSIDES-DOCUSATE SODIUM 1 EACH TAB PO SCH (20:44)
[2023-10-15] MEDS: ACETAMINOPHEN IV (For NPO) 1,000 MG in EMPTY BAG 1 BAG IVPB SCH (00:05)
[2023-10-15] MEDS: ACETAMINOPHEN TAB 500 MG TAB PO SCH (00:20)
[2023-10-15] MEDS: IBUPROFEN 600 MG TAB PO SCH (00:21)
[2023-10-15] MEDS: SIMETHICONE 80 MG CHEWABLE PO PRN (05:27)
--- NOTE | 2023-10-15 08:13 | P.PNOBGPC ---
Subjective - Subjective Principal diagnosis: Postop day 1, repeat section Interval history: Patient is doing well overall. Awaiting spontaneous void. She states her pain is well-controlled. She is ambulating without difficulty. Pain is well- controlled. Patient reports: Reports appetite normal, Reports pain well controlled, Reports ambulating normally [place]: doing well (In special care nursery on high flow oxygen) Objective - Vital Signs Latest vital signs: Vital Signs Temp Pulse Resp BP Pulse Ox 10/15/23 06:54 61 18 101/67 98 10/15/23 06:50 70 18 89/58 98 10/15/23 00:00 97.6 F 63 16 110/61 96 10/14/23 20:06 70 16 123/59 100 10/14/23 19:51 72 16 132/63 100 10/14/23 19:36 74 16 132/61 100 10/14/23 19:21 75 16 126/60 96 10/14/23 19:06 74 16 131/60 98 10/14/23 18:51 74 16 122/56 99 10/14/23 18:36 80 16 134/62 98 10/14/23 18:21 76 16 99/64 100 10/14/23 18:06 97.4 F L 91 16 135/59 100 10/14/23 15:16 98.3 F 102 H 18 130/83 98 Intake and Output 10/14/23 10/15/23 10/15/23 22:59 06:59 14:59 Output Total 655 500 Balance -655 -500 Output: Urine 500 Output, Quantitative 655 Blood Loss Other: Weight 94.801 kg - Exam Extremities: Present: normal, edema Abdomen: Present: normal appearance, soft Incision: Present: normal, dry, intact Uterus: Present: normal, firm Assessment and Plan (1) IUGR (intrauterine growth restriction) Current Visit: Yes Status: Acute Code(s): LNB9106 - SNOMED Code(s): 43528712 (2) 37 weeks gestation of Current Visit: No Status: Acute Code(s): Z3A.37 - 37 WEEKS GESTATION OF SNOMED Code(s): 93344682 (3) Oligohydramnios Current Visit: No Status: Acute Code(s): O41.00X0 - OLIGOHYDRAMNIOS, UNSP TRIMESTER, NOT APPLICABLE OR UNSP SNOMED Code(s): 19230024 Plan: Patient is doing well overall. Awaiting spontaneous void. Plan to continue routine postoperative care.
[2023-10-15 08:32] LABS: Basophils % (A) 0 %; Eosinophils % (A) 0 %; Lymphocytes % (A) 9 %; MCH 32.9 pg (25.0-35.0); MCHC 33.5 g/dL (31.0-37.0); MCV 98.1 fL (80.0-100.0); Mean Platelet Volume 8.7; Monocytes # (A) 0.6 k/uL (0-1.0); Monocytes % (A) 6 %; Neutrophils # (A) 8.8 k/uL (1.3-7.7); Neutrophils % (A) 84 %; Platelet Count 196 k/uL (150-450); RBC 2.95 m/uL (3.80-5.40); RDW 13.2 % (11.5-15.5); WBC 10.5 k/uL (3.8-10.6)
[2023-10-15 08:33] LABS: HGB 9.7 gm/dL (11.4-16.0)
[2023-10-15] MEDS: diphenhydrAMINE 25 MG CAP PO PRN (13:14)
[2023-10-15] MEDS: LACTATED RINGERS 1,000 ML IV SCH (20:24)
[2023-10-15 23:28] VITALS: RESP 16
--- NOTE | 2023-10-16 15:57 | P.PN ---
Progress Note - Text 10/15/232109 23-year-old female status post with spinal Duramorph. Patient seen and evaluated for postop pain control no complaints of nausea vomiting VAS of 1. She does have complaints of pruritus which should subside
[2023-10-17 10:06] VITALS: BP 114/79; PULSE 83; TEMP 98.4
--- NOTE | 2023-10-17 10:37 | P.DS ---
Providers Date of admission: 10/14/23 14:53 Expected date of discharge: 10/17/23 Attending physician: Roselyn Adler Primary care physician: Stated None - Discharge Diagnosis(es) (1) S/P section Current Visit: No Status: Acute Hospital Course: Patient presented for repeat low transverse underwent this procedure without difficulty. She had an uneventful course. Denies nausea, vomiting, chest pain, sugars of breath or calf pain. Incision is clean, dry, intact. Patient will be discharged home post operative day #3 in stable condition to follow-up with Dr. glez in 2 weeks. Plan - Discharge Summary New Discharge Prescriptions: No Action Pnv No.95/Ferrous Fum/Folic AC [ Multivitamin Tablet] 1 each PO DAILY Aspirin [Children's Aspirin] 81 mg PO DAILY Discharge Medication List Pnv No.95/Ferrous Fum/Folic AC [ Multivitamin Tablet] 1 each PO DAILY 12/06/18 [History] Aspirin [Children's Aspirin] 81 mg PO DAILY 07/09/21 [History] Follow up Appointment(s)/Referral(s): Roselyn Adler DO [Doctor of Osteopathic Medicine] - 11/23/23 2:45 pm (Post C/S Appointment 10-27-2023 at 3:00pm) Discharge Disposition: HOME SELF-CARE
--- NOTE | 2023-10-17 10:38 | P.PNOBGPC ---
Subjective - Subjective Principal diagnosis: S/P RLTCS POD #2 Interval history: Pt seen and examined. feeling well. Patient reports: Reports appetite normal, Reports voiding normally, Reports pain well controlled, Reports ambulating normally [place]: doing well Objective - Vital Signs Latest vital signs: Vital Signs Temp Pulse Resp BP Pulse Ox 10/17/23 09:00 98.4 F 83 16 114/79 98 10/17/23 00:37 97.8 F 85 16 125/77 99 10/16/23 17:32 97.9 F 94 16 129/78 10/16/23 11:51 16 - Exam Lungs: bilateral: normal Chest: Normal S1, Normal S2 Extremities: Present: normal Abdomen: Present: normal appearance, soft. Absent: distention, tenderness Incision: Present: normal, dry, intact Uterus: Present: normal, firm Assessment and Plan (1) S/P section Current Visit: No Status: Acute Code(s): Z98.891 - HISTORY OF UTERINE SCAR FROM PREVIOUS SURGERY SNOMED Code(s): 403097641 Plan: 1. cont po care
== END 2023-10-17 12:40 | disposition home or self-care (01) | DRG 540 ==
LOC: 4FBP 14:53
PROVIDERS: ADMIT Obstetrics & Gynecology Obstetrics; ATTEND Obstetrics & Gynecology Obstetrics
PROC: 10D00Z1 Extraction of Products of Conception, Low, Open Approach (ICD-10-PCS; principal; 2023-10-14 17:05)
DX: O34.211 Maternal care for low transverse scar from previous cesarean delivery (principal); N85.8 Other specified noninflammatory disorders of uterus; Z3A.37 37 weeks gestation of pregnancy; Z37.0 Single live birth; L29.9 Pruritus, unspecified; O36.5930 Maternal care for other known or suspected poor fetal growth, third trimester, not applicable or unspecified; O41.03X0 Oligohydramnios, third trimester, not applicable or unspecified; Z79.82 Long term (current) use of aspirin
CPT/HCPCS: 85025; 86850; 86900; 86901; 88307

== ENCOUNTER 2024-11-04 10:24 | Emergency (ER) | payer OTHER ==
[2024-11-04 10:51] VITALS: RESP 20
[2024-11-04] MEDS: KETOROLAC 15 MG/ML 1 ML VIAL IM STA (12:30)
--- NOTE | 2024-11-04 13:23 | ED ---
Eye Problem HPI - General Chief complaint: Eye Problems Stated complaint: Left eye irritation Time Seen by Provider: 11/04/24 11:49 Source: patient, RN notes reviewed Mode of arrival: ambulatory Limitations: no limitations - History of Present Illness Initial comments: This is a 24-year-old female who presents to the emergency department for left eye pain and swelling. States that it started about a week ago. She does have some blurring to the vision. She tried using her son's older pinkeye drops, but believes it just made it worse. She has also noticed purulent drainage from the eye. Denies any fevers or chills. chief complaint: eye pain - Related Data Home Medications Medication Instructions Recorded Confirmed Pnv No.95/Ferrous Fum/Folic AC 1 each PO DAILY 12/06/18 10/14/23 [ Multivitamin Tablet] Aspirin [Children's Aspirin] 81 mg PO DAILY 07/09/21 10/14/23 Previous Rx's Medication Instructions Recorded Amoxic-Pot Clav 875-125Mg 1 tab PO Q12HR 7 Days #14 tab 11/04/24 [Augmentin 875-125] Sulfamethox-Tmp 800-160Mg [Bactrim 1 tab PO Q12HR 7 Days #14 tab 11/04/24 DS 800-160 mg] Allergies Allergy/AdvReac Type Severity Reaction Status Date / Time No Known Allergies Allergy Verified 11/04/24 10:51 Review of Systems ROS Statement: Those systems with pertinent positive or pertinent negative responses have been documented in the HPI. ROS Other: All systems not noted in ROS Statement are negative. Past Medical History Past Medical History: Asthma, Skin Disorder Additional Past Medical History / Comment(s): miscarriage, dermographia, [place]. HEDS History of Any Multi-Drug Resistant Organisms: None Reported Past Surgical History: No Surgical Hx Reported Additional Past Surgical History / Comment(s): D&C Past Anesthesia/Blood Transfusion Reactions: No Reported Reaction Past Psychological History: Anxiety, Depression Smoking Status: Current every day smoker Past Alcohol Use History: None Reported Past Drug Use History: Marijuana - Past Family History Mother Family Medical History: Cancer Additional Family Medical History / Comment(s): Cervical and Uterine CA General Exam Limitations: no limitations General appearance: alert, in no apparent distress Head exam: Present: atraumatic, normocephalic, normal inspection Eye exam: Present: PERRL, EOMI, other (Left conjunctival injection and chemosis with periorbital swelling and tenderness) Respiratory exam: Present: normal lung sounds bilaterally. Absent: respiratory distress, wheezes, rales, rhonchi, stridor Cardiovascular Exam: Present: regular rate, normal rhythm Neurological exam: Present: alert, oriented X3, CN II-XII intact Psychiatric exam: Present: normal affect, normal mood Skin exam: Present: warm, dry, intact, normal color. Absent: rash Course Vital Signs 11/04/24 11/04/24 10:49 13:54 Temperature 98.1 F 98.4 F Pulse Rate 63 68 Respiratory 20 20 Rate Blood Pressure 145/92 136/89 O2 Sat by Pulse 99 99 Oximetry Medical Decision Making - Medical Decision Making This is a 24-year-old female who presents to the emergency department for left eye pain and swelling. Was pt. sent in by a medical professional or institution? @ -No Did you speak to anyone other than the patient for history? @ -No Did you review nursing and triage notes? @ -Yes, and I agree, it is accurate with regards to the patient's symptoms. Were old charts reviewed? @ -No Differential Diagnosis? @ -Differential Eye Pain: Conjuncitivitis (viral, bacterial, allergic), corneal abrasion, foreign body, iritis, uveitis, keratitis, acute angle closure glaucoma, this is not meant to be an all-inclusive list. EKG interpreted by me (3pts min.)? @ -Not obtained X-rays interpreted by me (1pt min.)? @ -Not obtained CT interpreted by me (1pt min.)? @ -CT scan of the orbits obtained. My interpretation identifies findings suggestive of preseptal cellulitis U/S interpreted by me (1pt. min.)? @ -Not obtained What testing was considered but not performed? (CT, X-rays, U/S, labs)? Why? @ -None What meds were considered but not given? Why? @ -None Did you discuss the management of the patient with other professionals? @ -No Did you reconcile home meds? @ -No Was smoking cessation discussed for >3mins.? @ -No Was critical care preformed (if so, how long)? @ -No Were there social determinants of health that impacted care today? How? (Homelessness, low income, unemployed, alcoholism, drug addiction, transportation, low edu. Level, literacy, decrease access to med. care, fci, rehab)? @ -No Was there de-escalation of care discussed even if they declined? (Discuss DNR or withdrawal of care, Hospice)? @ -No What co-morbidities impacted this encounter? (DM, HTN, Smoking, COPD, CAD, Cancer, CVA, Hep., AIDS, mental health diagnosis, sleep apnea, morbid obesity)? @ -None Was patient admitted / discharged? @ -Discharged. Given that there was associated chemosis and notable discomfort, CT scan of the orbits was obtained. No evidence of orbital cellulit is was identified. Findings were consistent with a preseptal cellulitis. Bactrim and Augmentin prescribed for further management. Strict return parameters discussed. Also advised close follow-up with her PCP. Patient discharged home in stable condition. Case discussed with ED attending Dr. Joshi. Return precautions reviewed in depth, the patient is instructed to return to the emergency department with any new, worsening, or concerning symptoms. Patient verbalized understanding. Undiagnosed new problem with uncertain prognosis? @ -None Drug Therapy requiring intensive monitoring for toxicity (Heparin, Nitro, Insulin, Cardizem)? @ -None Were any procedures done? @ -None Diagnosis/symptom? @ -Left preseptal cellulitis Acute, or Chronic, or Acute on Chronic? @ -Acute Uncomplicated (without systemic symptoms) or Complicated (systemic symptoms)? @ -Uncomplicated Side effects of treatment? @ -None Exacerbation, Progression, or Severe Exacerbation] @ -Not applicable Poses a threat to life or bodily function? @ -No - Radiology Data Radiology results: report reviewed, image reviewed Disposition Clinical Impression: Periorbital cellulitis of left eye Disposition: HOME SELF-CARE Instructions (If sedation given, give patient instructions): Periorbital Cellulitis in Adults (ED) Additional Instructions: Return to the emergency department with any new, worsening, or concerning symptoms. Take both antibiotics as prescribed for 7 days. Apply the ciprofloxacin eyedrops as 1 to 2 drops to the left eye every 4-6 hours for 7 days. Follow up with your primary care provider in 1-2 days. Prescriptions: Amoxic-Pot Clav 875-125Mg [Augmentin 875-125] 1 tab PO Q12HR 7 Days #14 tab Sulfamethox-Tmp 800-160Mg [Bactrim DS 800-160 mg] 1 tab PO Q12HR 7 Days #14 tab Is patient prescribed a controlled substance at d/c from ED?: No Referrals: Marcelino Hampton MD [Primary Care Provider] - 1-2 days Time of Disposition: 13:45
--- NOTE | 2024-11-04 13:25 | CT ---
EXAMINATION TYPE: CT orbits wo con DATE OF EXAM: 11/04/2024 12:44 PM COMPARISON: None. CLINICAL INDICATION: Female, 24 years old with history of Left eye pain and swelling; PHH, RED SWOLLE N LEFT EYE TECHNIQUE: Orbits: Axial CT with coronal and sagittal reformats through the orbits. No IV or oral contrast was u tilized. CT DLP: 279.7 mGycm, Automated exposure control for dose reduction was used. Findings: Orbital Contents: * Globes: Normal. * Preseptal Tissues: Fat stranding in this edema on the left orbit * Intraconal Structures: Normal. * Extraconal Structures and Lacrimal Glands: Normal. * Orbital Riesel: Normal. Sella Turcica and Cavernous Sinuses: The sella turcica and cavernous sinus regions are intact and sym metric. Visualized Brain Parenchyma: Normal. Paranasal Sinuses and Surrounding Structures: Mild scattered paranasal sinus disease most pronounced in the left maxillary sinus and right maxillary sinus. Musculoskeletal: No evidence of fracture. Other: Soft tissues are within normal limits. IMPRESSION: Findings of left preseptal cellulitis. No evidence for involvement of the post septal soft tissues. [facility], , 11/04/2024 1:22 PM
[2024-11-04 13:55] VITALS: BP 136/89; PULSE 68; TEMP 98.4
== END 2024-11-04 13:56 | disposition home or self-care (01) ==
LOC: EC 10:24
DX: L03.213 Periorbital cellulitis (principal); F17.200 Nicotine dependence, unspecified, uncomplicated
CPT/HCPCS: 70480; 99284; 96372; J1885